=== PATIENT | male | born 1980 | race Caucasian/White ===

== ENCOUNTER 2021-03-02 13:38 | Emergency (ER) | payer OTHER ==
[2021-03-02] MEDS ORDERED: CEPHALEXIN500 M1 PO (16:51)
== END 2021-03-02 17:10 | disposition home or self-care (01) ==
LOC: FER 13:38
DX: S61.210A Laceration without foreign body of right index finger without damage to nail, initial encounter (principal); W23.0XXA Caught, crushed, jammed, or pinched between moving objects, initial encounter; Y92.89 Other specified places as the place of occurrence of the external cause; Y99.0 Civilian activity done for income or pay
CPT/HCPCS: 73140; J2001